=== PATIENT | male | born 1970 | race Caucasian/White ===

== ENCOUNTER 2020-12-01 08:00 | Outpatient (RCR) | payer OTHER, SELFPAY ==
[2020-12-01] MEDS: COVID-19 VACC, MRNA(PFIZER)/PF 30 MCG/0.3 ML SYRINGE IM (13:17)
[2020-12-22] MEDS: COVID-19 VACC, MRNA(PFIZER)/PF 30 MCG/0.3 ML SYRINGE IM (13:16)
== END 2021-02-23 23:59 ==
LOC: IMMUN 08:00
PROVIDERS: Visit Provider Family Medicine
DX: Z23 Encounter for immunization (principal)
CPT/HCPCS: 0001A; 0002A; 91300

== ENCOUNTER 2023-04-29 15:40 | Emergency (ER) | payer OTHER, SELFPAY ==
[2023-04-29 15:41] VITALS: BP 165/84; PULSE 78; RESP 16; TEMP 36.1; O2SAT 100; BMI 31.5
--- NOTE | 2023-04-29 15:47 | CT_ITS ---
STUDY: CT ABDOMEN AND PELVIS WITHOUT CONTRAST REASON FOR EXAM: Male, 52 years old. Kidney Stone RADIATION DOSAGE (If Supplied By Facility): CTDIvol = ( 16.75 ) mGy, DLP = ( 958.44 ) mGycm TECHNIQUE: Transaxial images were obtained from the dome of the diaphragm to the symphysis pubis without oral contrast, and without intravenous contrast. Sagittal and coronal images were reconstructed. Individualized dose optimization techniques were used for this CT. COMPARISON: None. FINDINGS: The visualized lung bases are unremarkable. The visualized portions of the heart are within normal limits. Small calcified mediastinal node Normal liver. Large calcified gallstone without evidence for acute inflammation. Normal spleen. Normal pancreas. Normal bilateral adrenal glands. Right kidney is unobstructed. There is a cyst in the lower pole which will not require additional imaging. Left kidney is not obstructed however there is a stone measuring approximately 5 mm in the proximal ureter in association with stranding in the perinephric fat Normal visualized stomach. Normal small intestine. Minor diverticular changes in the distal descending colon without evidence for acute diverticulitis. The appendix is visualized and appears normal. Normal abdominal aorta. Normal inferior vena cava. Normal retroperitoneum. Normal urinary bladder. Normal abdominal wall. Lumbar spine demonstrates mild spondylosis. CT/Abdomen/Pelvis without Cont IMPRESSION: Nonobstructing proximal left ureteral calculus with perinephric stranding in the fat.. Cholelithiasis without evidence for acute cholecystitis Electronically Signed: Jude Michaels MD at 16:46 EDT ,
--- NOTE | 2023-04-29 15:47 | EDS_ITS ---
HPI History of Present Illness Chief Complaint: Flank Pain Detail of Chief Complaint: Acute left flank pain radiating to groin Informant: patient Onset/Context/Timing Onset: Hours (1.0) Context: Sudden Onset Timing: Continuous and Waxes and wanes Quality: Colicky Location: Left flank Current Severity: Severe Maximum Severity: Severe Worsened by: Nothing Relieved by: Nothing Associated Symptoms Associated Symptoms: Nausea and vomiting x1 Narrative Narrative: Patient is a 52-year-old male with history of type 2 diabetes, hypertension and hypercholesterolemia who presents with acute onset of left flank pain rating to his groin. He denies dysuria, frequency, urgency or hematuria. Patient states he had a kidney stone 25 years ago. He denies fever, chills night sweats. He denies cardiac or respiratory symptoms. He denies history of renal disease associated with his diabetes or hypertension. There is no history of trauma. Patient states he drove himself to the emergency department. Patient did vomit once prior to arrival Prior similar symptoms: Yes (25 years ago secondary to ureterolithiasis) Recent Illness/Hospitalization: No PFSH [facility] Medical History (Updated 04/29/23 @ 16:[address] Jose Luis Richards MD) Ureteral stone Home Medications ondansetron 4 mg disintegrating tablet 4 mg PO Q8H PRN PRN Nausea #10 tabs 04/29/23 [Rx Last Taken Unknown] oxycodone-acetaminophen 5 mg-325 mg tablet 1 tab PO Q6H PRN PRN pain 5 days #20 TABLETS 04/29/23 [Rx Last Taken Unknown] Allergy/AdvReac Type Severity Reaction Status Date / Time No Known Allergies Allergy Verified 04/29/23 15:41 Social History (Updated 04/29/23 @ 15:[address] Jose Luis Richards MD) household members: none Smoking Status: Former smoker substance use type: does not use ROS ROS ED Constitutional Constitutional ED: Denies chills, fever(s), subjective, sweats or weight loss Eyes Eyes: Denies blurry vision, change in vision or diplopia ENT ENT ED: Denies ear pain, rhinorrhea or sore throat Cardiovascular Cardiovascular: Denies chest pain, orthopnea or palpitations Respiratory/Chest Respiratory/Chest: Denies cough, dyspnea, dyspnea on exertion or orthopnea Gastrointestinal Gastrointestinal: Reports nausea and vomiting; Denies abdominal pain or melena Genitourinary Genitourinary ED: Denies dysuria, hematuria or urinary frequency Musculoskeletal Musculoskeletal: Reports other Details: Left flank pain ; Denies arthralgias, back pain, myalgias or neck pain Integumentary Denies rash Neurologic Neurologic: Denies paresthesias or weakness Endocrine Endocrinology: Denies cold intolerance or heat intolerance Hematologic/Lymphatic Hematologic/Lymphatic: Reports systems reviewed and no addt'l complaints, except as documented EXAM Physical Exam Const Vital Signs: 04/29/23 15:41 Temperature 97 F L Temperature Source Temporal Pulse Rate 78 Respiratory Rate 16 Blood Pressure 165/84 H Blood Pressure Mean 111 Pulse Ox 100 Oxygen Delivery Method Room Air Positive well nourished and well developed General Appearance ED: well developed and NAD; Negative for cyanotic, diaphoretic or pallor HEENT Reports moist mucous membranes HEENT Narrative: Atraumatic normocephalic. Ears normal. Nares patent. Eyes PERRL and EOMs intact bilaterally General Eye ED: Negative for pale conjunctiva or scleral icterus Neck no lymphadenopathy, supple and no JVD Chest Wall inspection of chest normal and palpation of chest normal Resp normal respiratory effort and clear to auscultation bilaterally Cardio regular rate, regular rhythm, S1 normal heart sound, S2 normal heart sound and no murmurs GI normal to inspection, nondistended, normoactive bowel sounds, non-tender, non- distended and no masses; Negative for hepatosplenomegaly Back/Spine General Back: CVA tenderness left Extremity normal to inspection General Extremety ED: Negative for edema or tenderness General Extremity: Negative for edema Neuro oriented x3, CN's II-XII intact bilaterally and no sensory deficits noted Sensorium / Orientation: alert Psych mental status grossly normal Skin no rashes or lesions noted, no wounds and skin turgor normal General Skin Exam: Negative for jaundice or pallor MDM MDM MDM Narrative Medical decision making narrative: Patient with abrupt onset of left flank pain rating to his groin differential diagnosis would include ureterolithiasis, atypical presentation for abdominal aortic aneurysm or aortic dissection. Also would consider sigmoid volvulus. Because patient is diabetic BMP was obtained to assess glucose and anion gap as well as renal function. UA was obtained to assess for infection. Patient was treated with IV Toradol for his pain and IV Zofran for his nausea and vomiting. He did not receive opiates since he drove himself. Also patient reports normal kidney function. Lab Data Attestation: I reviewed the patient's lab results. Lab results narrative: Basic metabolic panel reveals elevated glucose of 158 with normal CO2 anion gap. Renal function is normal. Urine reveals microscopic hematuria with no pyuria or bacteria. Labs: Laboratory Results - last 24 hr 04/29/23 04/29/23 15:50 16:38 Sodium 139 Potassium 3.4 L Chloride 107 Carbon Dioxide 25.0 Anion Gap 7 BUN 15 Creatinine 1.08 Estim Creat Clear Calc 90.42 Est GFR (MDRD) Af Amer 92 Est GFR (MDRD) Non-Af 76 BUN/Creatinine Ratio 13.9 Glucose 158 H Calcium 9.1 Urine Color Yellow Urine Clarity Clear Urine pH 6.0 Ur Specific [place] 1.025 Urine Protein 15 H Urine Glucose (UA) Normal Urine Ketones Negative Urine Occult Blood 150 H Urine Nitrite Negative Urine Bilirubin Negative Urine Urobilinogen Normal Ur Leukocyte Esterase Negative Urine RBC 5-10 SEEN Urine WBC 0 SEEN Ur Squamous Epith Cells 0 SEEN Urine Bacteria 0 SEEN Urine Mucus 0 SEEN Radiography Diagnostic Testing: Clinical Impression(s) from Imaging Studies Abdomen/Pelvis CT 04/29/23 15:47 IMPRESSION: Nonobstructing proximal left ureteral calculus with perinephric stranding in the fat.. Cholelithiasis without evidence for acute cholecystitis Electronically Signed: Jude Michaels MD at 16:46 EDT , CT of the abdomen pelvis without contrast reveals a large gallstone. There is no thickening of the gallbladder wall. There is a right renal cyst noted. There is a proximal 6 mm left ureteral stone with mild hydronephrosis noted on the left. There is minimal atherosclerotic disease. Awaiting formal read by radiologist. Patient was reassessed and his pain has improved after IV Toradol, 1608. Treatment and Re-Evaluation :: Patient was referred to urology. He was treated with oxycodone and acetaminophen and NSAIDs since he has normal renal function. Discharge Plan Triage Chief Complaint: Flank Pain ED Provider: MauriceJose Luis Dx/Rx/DC Orders Clinical Impression: Calculus of proximal left ureter, Type 2 diabetes mellitus, Hypertension, Hyperlipidemia, Cholelithiasis, Benign cyst of right kidney, Hydronephrosis with renal and ureteral calculus obstruction Instructions: Gallstones Dc, ED Kidney Stone w/ Colic Prescriptions: New oxycodone-acetaminophen [oxycodone-acetaminophen] 5-325 mg tablet 1 tab PO Q6H PRN PRN (Reason: pain) 5 Days Qty: 20 0RF ondansetron [ondansetron] 4 mg tablet,disintegrating 4 mg PO Q8H PRN PRN (Reason: Nausea) Qty: 10 0RF Primary Care Provider: Claudia Drake Referrals: Claudia Drake MD [Primary Care Provider] - Shaun Park MD [Med Staff - Active Staff] - 5-7 Days Disposition Disposition: Home, Self Care
[2023-04-29] MEDS: Ketorolac 15 MG/ML Vial IV (15:53)
[2023-04-29] MEDS: Ondansetron 4 MG/2 ML Vial IV (15:53)
[2023-04-29] MEDS: 0.9% Normal Saline 1,000 ML 250 ML IV (15:54)
[2023-04-29 16:12] LABS: Anion Gap 7 (5-15); BUN 15 mg/dL (7-18); BUN/Creat Ratio 13.9 RATIO (10-20); Calcium,Total 9.1 mg/dL (8.5-10.1); Chloride 107 mmol/L (98-107); Creatinine, Serum 1.08 mg/dL (0.70-1.30); EST Glomerular Filtration Rate 76 mL/min (>60); Est Glom Filt Rate - Afr Amer 92 mL/min (>60); Estimated Creatinine Clearance 90.42 ml/min; Glucose 158 mg/dL (74-106); Potassium 3.4 mmol/L (3.5-5.1); Sodium Level 139 mmol/L (136-145)
[2023-04-29 16:47] LABS: Bacteria 0 SEEN /hpf (None Seen); Mucous, Urine 0 SEEN /hpf (<or=2+); Squamous Epithelial Cells - UA 0 SEEN /hpf (0-5); White Blood Cells 0 SEEN /hpf (0-5)
[2023-04-29 16:48] LABS: Color, Urine Yellow (Yellow); Glucose, Dipstick Normal (Normal); Ketone-Dipstick Negative (Negative); Leukocyte Esterase-Dipstick Negative /ul (Negative); Nitrite-Dipstick Negative (Negative); Occult Blood-Urine 150 /ul (Negative); Protein-Dipstick 15 mg/dl (Negative); Specific Gravity, Urine 1.025 (1.002-1.030); Urine Bilirubin Dipstick Negative (Negative); Urine Clarity Clear (Clear); Urine Urobilinogen Normal (Normal)
[2023-04-29 17:41] LABS: Red Blood Cells-Urine 5-10 SEEN /hpf (0-5)
[2023-04-29 17:45] VITALS: BP 134/78; PULSE 67; RESP 14; TEMP 36.6; O2SAT 100
== END 2023-04-29 18:18 | disposition home or self-care (01) ==
PROVIDERS: Emergency Provider Emergency Medicine; PCP Psychiatry & Neurology Neurology; Visit Provider Emergency Medicine
DX: N13.2 Hydronephrosis with renal and ureteral calculous obstruction (principal); E11.9 Type 2 diabetes mellitus without complications; I10 Essential (primary) hypertension; E78.5 Hyperlipidemia, unspecified; K80.20 Calculus of gallbladder without cholecystitis without obstruction; N28.1 Cyst of kidney, acquired; Z87.891 Personal history of nicotine dependence
CPT/HCPCS: 74176; 80048; 81001; 96374; 96375; 99283; J7030; A4216; J2405

== ENCOUNTER → 2023-05-08 | Outpatient (CLI) | payer OTHER, SELFPAY ==
--- NOTE | 2023-05-08 11:10 | RAD_ITS ---
INDICATION: CALCULUS OF KIDNEY EXAMINATION/TECHNIQUE: X-RAY - XR Abdomen 1 View COMPARISON: Prior study dated: CT dated April 29, 2023 FINDINGS: BOWEL GAS PATTERN: Non-obstructive. No bowel or stomach distention. FREE AIR: Not assessed on a single supine view. ORGANOMEGALY: Not seen. CALCIFICATIONS: There is a calcification within the right upper quadrant consistent with stone within the gallbladder. LOWER CHEST: No acute pathology. BONES AND SOFT TISSUES: No acute pathology. RAD/Abdomen Single View IMPRESSION: Cholelithiasis. No renal nor ureteral calculi identified. Electronically Signed: Stephanie Martinez MD at 11:45 EDT ,
== END | disposition home or self-care (01) ==
LOC: RAD 10:59
PROVIDERS: PCP Psychiatry & Neurology Neurology; Referring Provider Urology; Visit Provider Urology
DX: N20.0 Calculus of kidney (principal)
CPT/HCPCS: 74018

== ENCOUNTER → 2024-02-16 | Outpatient (CLI) | payer OTHER, SELFPAY ==
--- NOTE | 2024-02-16 07:57 | US_ITS ---
STUDY: ABDOMINAL ULTRASOUND - ELASTOGRAPHY REASON FOR VISIT: Male, 53 years old. Elevated liver function tests. Fatty infiltration of the liver. TECHNIQUE: Liver stiffness measurements were obtained on a [employer] [id number] ultrasound machine using a CA 1-7 probe following the SRU guidelines. 3 measurements were obtained using a 2-D-SWE method. TheIQR/M was 12% suggesting a quality data set. TECHNICAL QUALITY: Adequate. COMPARISON: None. FINDINGS: Liver: There is no demonstrated mass lesion. Median liver stiffness measured 6.4 kPa. Abdomen: There is no demonstrated mass lesion. US/Elastography Parenchyma/Organ IMPRESSION: Liver stiffness measures 6.4 kPa compatible with F2-F3 (Mild to moderate liver fibrosis) Metavir score. Electronically Signed: Madi Hung MD at 14:16 EDT ,
== END | disposition home or self-care (01) ==
PROVIDERS: PCP Psychiatry & Neurology Neurology; Referring Provider Nurse Practitioner Family; Visit Provider Nurse Practitioner Family
DX: R79.89 Other specified abnormal findings of blood chemistry (principal); K76.0 Fatty (change of) liver, not elsewhere classified
CPT/HCPCS: 76981